=== PATIENT | female | born 1975 | race Caucasian/White ===

== ENCOUNTER 2017-07-02 06:10 | Emergency (ER) | payer SELFPAY, MEDICAID ==
[2017-07-02] MEDS ORDERED: CLINDAMYCIN INJ 900 MG in SODIUM CHLORIDE 0.9% INJ 100 ML IV (06:30)
[2017-07-02] MEDS ORDERED: SODIUM CHLORIDE 0.9% FLUSH 10 ML FLUSH IVF (06:30)
[2017-07-02] MEDS: DEXAMETHASONE SOD PHOS 4 MG/ML VIAL IV PUSH (06:45)
[2017-07-02 06:58] LABS: AUTOMATED NEUTROPHIL # 23.6 TH/MM3 (1.8-7.7); BASOPHIL # 0.8 TH/MM3 (0-0.2); BASOPHIL % 2.6 % (0.0-2.0); EOSINOPHIL # 0.3 TH/MM3 (0-0.4); EOSINOPHIL % 1.1 % (0.0-4.0); HEMATOCRIT 34.2 % (35.0-46.0); HEMOGLOBIN 10.3 GM/DL (11.6-15.3); LYMPHOCYTE # 3.3 TH/MM3 (1.0-4.8); MEAN CELL VOLUME 59.7 FL (80.0-100.0); MEAN CORPUSCULAR HGB CONC 30.1 % (32.0-36.0); MEAN PLATELET VOLUME 8.1 FL (7.0-11.0); MONO % 6.3 % (0.0-8.0); MONOCYTE # 1.9 TH/MM3 (0-0.9); PLATELET COUNT 521 TH/MM3 (150-450); RED BLOOD COUNT 5.74 MIL/MM3 (4.00-5.30); RED CELL DISTRIBUTION WIDTH 17.8 % (11.6-17.2); WHITE BLOOD COUNT 29.9 TH/MM3 (4.0-11.0)
[2017-07-02] MEDS: SODIUM CHLOR 0.9% 1000 ML INJ 1,000 ML IV ×2 (06:59→08:27)
[2017-07-02 07:00] LABS: HEMO FLAGS AUTO DIFF
[2017-07-02] MEDS: ACETAMINOPHEN 325 MG TAB PO (07:00)
[2017-07-02] MEDS: KETOROLAC TROMETHAMINE 30 MG/ML (IVP) VIAL IV PUSH (07:00)
[2017-07-02 07:02] LABS: CHLORIDE 102 MEQ/L (98-107); POTASSIUM 3.6 MEQ/L (3.5-5.1); SODIUM (NA) 134 MEQ/L (136-145)
[2017-07-02 07:04] LABS: ANION GAP 7 MEQ/L (5-15); BICARBONATE 25.1 MEQ/L (21.0-32.0); BLOOD UREA NITROGEN 4 MG/DL (7-18); CALCIUM 8.6 MG/DL (8.5-10.1); GLUCOSE,RANDOM 102 MG/DL (74-106)
[2017-07-02 07:08] LABS: CREATININE 0.74 MG/DL (0.50-1.00); GLOMERULAR FILTRATION RATE 87 ML/MIN (>89)
[2017-07-02] MEDS: CLINDAMYCIN 900 MG/NS PREMIX 50 ML IV (07:11)
[2017-07-02 07:36] LABS: BANDS 2 % (0-6); EOSINOPHILS 2 % (0-4); LYMPHOCYTES 9 % (9-44); METAMYELOCYTES 2 % (0-1); MONOCYTES 5 % (0-8); NEUTROPHIL # MANUAL DIFF 25.1 TH/MM3 (1.8-7.7); PLATELET ESTIMATE SMEAR HIGH (NORMAL); PLATELET MORPHOLOGY NORMAL (NORMAL); POLYS (SEG NEUTROPHILS) 80 % (16-70); SCAN/DIFF FINAL DIFF MANUAL; WBC DIFF SAMPLE 100
[2017-07-02] MEDS: IOHEXOL 350 MG/ML 10 ML VIAL (for RAD DIAG) IVCONTRAST (07:56)
== END 2017-07-02 09:44 | disposition home or self-care (01) ==
LOC: PHED 06:10
DX: J02.0 Streptococcal pharyngitis (principal); J03.90 Acute tonsillitis, unspecified; J32.0 Chronic maxillary sinusitis; R00.0 Tachycardia, unspecified; H92.09 Otalgia, unspecified ear; E04.9 Nontoxic goiter, unspecified; Z72.0 Tobacco use; Z79.899 Other long term (current) drug therapy
CPT/HCPCS: 70491; 80048; 84703; 85007; 85027; 87880; 96361; 96365; 96375; 99284-25

== ENCOUNTER 2017-12-18 10:31 | Observation (INO) ==
--- NOTE | 2017-12-18 14:12 | ED ---
HPI General Chief Complaint: Chest Pain Stated Complaint: chest and back pain Time Seen by Provider: 12/18/17 14:03 Source: patient Mode of arrival: ambulatory Limitations: no limitations History of Present Illness MD complaint: Reports chest pain STEMI Alert: No Onset (ago): day(s) (2) Duration: intermittent Pain location: Reports left chest Related Data Home Medications Medication Instructions Recorded Confirmed No Known Home Medications 12/18/17 12/18/17 Allergies Allergy/AdvReac Type Severity Reaction Status Date / Time No Known Allergies Allergy Verified 12/18/17 10:45 Review of Systems ROS: all other systems reviewed are negative [facility] Medical History Medical History delivery delivered (Acute) Patient denies medical problems (Acute) Social History Social History Substance History: No History of Abuse Second Hand Smoke Exposure: Yes Smoking Status: Current every day smoker Tobacco Type: Cigarettes How Often Do You Have a Drink Containing Alcohol: 2 to 4 times a month Recent Travel in [facility] within the Last 8 Weeks: No Recent Out of Country Travel within the Last 8 Weeks: No Immunization History Tetanus Immunization: Unsure Exam Const General: cooperative, healthy appearing and comfortable Orientation: alert, awake and oriented x3 HENMT Head: normal to inspection, normocephalic and atraumatic Eyes General: appearance normal, both eyes and all related structures Conjunctivae: conjunctivae normal Sclera: sclerae normal EOM: EOM intact bilaterally Neck Neck: normal visual inspection and full ROM Chest Chest: normal inspection of the chest and normal palpation of entire chest wall Resp Effort & Inspection: normal respiratory effort and able to speak in complete sentences Auscultation: clear to auscultation bilaterally Cardio Rate: regular rate Rhythm: regular rhythm Heart Sounds: S1 normal and S2 normal GI Inspection: normal to inspection Palpation: soft Back/Spine/Pelvis Cervical Spine: cervical ROM normal Thoracic/Lumbar Spine: thoraco-lumbar ROM normal Skin General: no rashes or lesions noted, turgor normal and dry skin Rashes: no rashes Neuro General: alert, awake, oriented x3, moves all extremities and CN's II-XI intact bilaterally Extrem General: normal to inspection, full ROM and no pedal edema Psych Appearance: grossly normal Mental Status: mental status grossly normal Speech and Movement: speech and movement normal Mood: congruent mood Affect: normal affect Attitude: cooperative Thought Process: normal Thought Content: normal Judgment: judgment good Course Initial Documented Vital Signs Temperature 98.5 F 12/18/17 10:41 Pulse Rate 83 12/18/17 10:41 Respiratory Rate 18 12/18/17 10:41 Blood Pressure 165/87 H 12/18/17 10:41 Pulse Oximetry 98 12/18/17 10:41 Last Documented Vital Signs Temperature 98.5 F 12/18/17 10:41 Pulse Rate 77 12/18/17 14:01 Respiratory Rate 20 12/18/17 14:01 Blood Pressure 157/80 H 12/18/17 14:01 Pulse Oximetry 100 12/18/17 14:01 Clinical Decision Support HEART Score Questions History: Slightly suspicious EKG: Normal Age: < 45 years Risk Factors: 1-2 Risk Factors Initial Troponin: Normal Limit Heart Score HEART Score: 1 Medical Decision Making MDM Narrative Medical decision making narrative: This is a 42-year-old smoker who presents with left-sided chest pain that radiates through to her back. She states that her father had coronary artery disease at a young age. He is also a smoker. Onset of chest pain was 2 days ago. It had been intermittent but became persistent last night. Initial workup is negative. The patient is agreeable to admission to the chest pain center for further evaluation. Cardiac workup is in process. She is being given aspirin. Medical Screen Exam Complete: Yes Emergency Medical Condition: Yes Differential Diagnosis Differential Diagnosis: Differential diagnosis of chest pain includes but is not limited to musculoskeletal pain, pulmonary embolism, acute coronary syndrome , pneumonia, pleurisy Lab Data Lab results reviewed: Yes I reviewed the patient's lab results. Result diagrams: 12/18/17 14:12 12/18/17 14:12 Lab Results 12/18/17 12/18/17 Range/Units 14:12 14:12 WBC 16.8 H (4.0-11.0) th/mm3 RBC 4.99 (4.00-5.30) mil/mm3 Hgb 9.6 L (11.6-15.3) gm/dL Hct 30.5 L (35.0-46.0) % MCV 61.1 L (80.0-100.0) fL MCH 19.3 L (27.0-34.0) pg MCHC 31.6 L (32.0-36.0) % RDW 18.7 H (11.6-17.2) % Plt Count 550 H (150-450) th/mm3 MPV 8.1 (7.0-11.0) fL Neut % (Auto) 72.0 H (16.0-70.0) % Lymph % (Auto) 19.3 (9.0-44.0) % [place] % (Auto) 4.5 (0.0-8.0) % Eos % (Auto) 3.0 (0.0-4.0) % Baso % (Auto) 1.2 (0.0-2.0) % Neut # (Auto) 12.1 H (1.8-7.7) th/mm3 Lymph # (Auto) 3.2 (1.0-4.8) th/mm3 [place] # (Auto) 0.7 (0.0-0.9) th/mm3 Eos # (Auto) 0.5 H (0.0-0.4) th/mm3 Baso # (Auto) 0.2 (0.0-0.2) th/mm3 WBC Differential . Differential Comment Auto diff final Sodium 139 (136-145) meq/L Potassium 4.2 (3.5-5.1) meq/L Chloride 106 (98-107) meq/L Carbon Dioxide 27.0 (21.0-32.0) meq/L Anion Gap 6 (5-15) meq/L BUN 5 L (7-18) mg/dL Creatinine 0.77 (0.50-1.00) mg/dL Estimated GFR 83 L (>89) mL/min Random Glucose 98 (74-106) mg/dL Calcium 8.1 L (8.5-10.1) mg/dL Total Bilirubin 0.3 (0.2-1.0) mg/dL AST 21 (15-37) U/L ALT 21 (10-53) U/L Alkaline Phosphatase 95 (45-117) U/L Troponin I Less than 0.02 L (0.02-0.05) ng/mL Total Protein 7.9 (6.4-8.2) g/dL Albumin 3.5 (3.4-5.0) g/dL Imaging Data Attestation: I personally reviewed and interpreted this imaging study as follows : Radiologist's impression: Chest X-Ray 12/18/17 14:09 CONCLUSION: 1. No acute cardiopulmonary disease. ECG Data EKG Prior to Arrival: No Attestation: I personally reviewed and interpreted this ECG as follows: (EKG shows a normal sinus rhythm with a rate of 76. No STT wave changes.) Discharge Plan Discharge Disposition Patient Disposition: 30 Still Patient Discharge Details Diagnosis: Chest pain Physicians Team ED Provider: Amy Garza Rxs /Orders / Referrals /Forms Prescriptions: No Action No Known Home Medications RF: 0 Discharge Instructions Patient Printed Instructions: Chest Pain (ED) Discharge Interventions Interventions: Vital Signs Last Done: 12/18/17 14:01 Status ED Status: With Doctor
--- NOTE | 2017-12-18 14:27 | XR ---
EXAM DATE: 12/18/2017 2:09 PM EDT AGE/SEX: 42 years / Female INDICATIONS: Chest pain. CLINICAL DATA: This is the patient's initial encounter. Patient reports that signs and symptoms have been present for 1 day and indicates a pain score of 7/10. MEDICAL/SURGICAL HISTORY: None. None. COMPARISON: No prior exams available for comparison. FINDINGS: A single AP view of the chest demonstrates the lungs to be symmetrically aerated without evidence of mass, infiltrate or effusion. The cardiomediastinal contours are unremarkable. Osseous structures a re intact. CONCLUSION: 1. No acute cardiopulmonary disease. Electronically signed by: Abundio Barton MD 12/18/2017 2:26 PM EDT
[2017-12-18 14:28] LABS: Baso # (Auto) 0.2 th/mm3 (0.0-0.2); Baso % (Auto) 1.2 % (0.0-2.0); Eos # (Auto) 0.5 th/mm3 (0.0-0.4); Hematocrit 30.5 % (35.0-46.0); Hemoglobin 9.6 gm/dL (11.6-15.3); Lymph # (Auto) 3.2 th/mm3 (1.0-4.8); Lymph % (Auto) 19.3 % (9.0-44.0); Mean Corpuscular HGB Conc 31.6 % (32.0-36.0); Mean Corpuscular Hemoglobin 19.3 pg (27.0-34.0); Mean Corpuscular Volume 61.1 fL (80.0-100.0); Mean Platelet Volume 8.1 fL (7.0-11.0); Mono # (Auto) 0.7 th/mm3 (0.0-0.9); Mono % (Auto) 4.5 % (0.0-8.0); Neut # (Auto) 12.1 th/mm3 (1.8-7.7); Platelet Count 550 th/mm3 (150-450); Red Blood Count 4.99 mil/mm3 (4.00-5.30); Red Cell Distribution Width 18.7 % (11.6-17.2); White Blood Count 16.8 th/mm3 (4.0-11.0)
[2017-12-18 14:45] LABS: Alanine Aminotransferase 21 U/L (10-53); Albumin 3.5 g/dL (3.4-5.0); Anion Gap 6 meq/L (5-15); Aspartate Aminotransferase 21 U/L (15-37); Blood Urea Nitrogen 5 mg/dL (7-18); Calcium 8.1 mg/dL (8.5-10.1); Chloride 106 meq/L (98-107); Glomerular Filtration Rate 83 mL/min (>89); Glucose,Random 98 mg/dL (74-106); Sodium 139 meq/L (136-145)
[2017-12-18 14:46] LABS: Potassium 4.2 meq/L (3.5-5.1)
[2017-12-18 14:48] LABS: Alkaline Phosphatase 95 U/L (45-117); Total Protein 7.9 g/dL (6.4-8.2)
[2017-12-18] MEDS ORDERED: Acetaminophen 500 MG Tablet PO PRN (15:37)
--- NOTE | 2017-12-18 16:17 | P.HPCA ---
History of Present Illness Primary Care Physician: No Primary Care Physician Chief Complaint: Chest pain History of Present Illness: 42 year old female without significant medical history presents emergency room for further evaluation of nonexertional chest pain. Onset Saturday. Took Aleve and discomfort resolved. Discomfort returned Saturday. Location substernal, midback, and left inframammary area. Characterized as squeezing. Moderate in severity. Last evening duration at least 10 hours. Currently discomfort occurring intermittent lasting seconds. Associated symptoms include nausea and "shallow breathing." No dyspnea, vomiting, or diaphoresis. No precipitating factors. No recent injury or illness. No relieving factors. Took total of 6 Advil, 5 Aleve, and 6 arthritis tablets from her uncle since Saturday. Movement, position, or deep breathing does not make pain better or worse. Endorses similar discomfort over the years, occurring every few months also relieved with Aleve, never as severe. Denies dysuria, change in bowels, increase fatigue, or fever. Last week reports food poisoning x1 day with associated diarrhea and vomiting. Symptoms since resolved. [place] extremely cold lately, which is unusual for her. Last menses 1 week ago. Lifelong smoker. Family history noncontributory for early onset cardiovascular disease. Denies situational stress. Past cardiac testing None Social history No known diabetes, hypertension, or hyperlipidemia. Lifelong non-smoker, currently smoking 1 pack / 3 days, decreased from 1-1/2 packs daily. No alcohol or recreational drug use. . 2 young children ages 8 and 2. Caregiver for uncle diagnoses with dementia. Family history Father CABG age 55. - Diagnosis (1) Atypical chest pain (2) Tobacco abuse (3) Leukocytosis, unspecified (4) Anemia Review of Systems All other systems reviewed negative except as stated in HPI Genitourinary: Reports heavy periods Comments: menses regular, generally last 7 days, reported to "always be heavy." Not established with a FORGEMAN HELPER PMF[facility] - History History Provided By: Patient - Medical History Medical History: Medical History (Last Reviewed 12/18/17 @ 16:24 by FALLON Gomez) delivery delivered Patient denies medical problems - Surgical History Surgical History: Surgical History (Last Updated 12/18/17 @ 16:24 by FALLON Gomez) History of - Family History Family History: Family History (Last Updated 12/18/17 @ 16:24 by FALLON Gomez) Father Hx of CABG Afib TIA (transient ischemic attack) - Social History I have reviewed the patient's Social History: Yes - Tobacco History Second Hand Smoke Exposure: Yes Tobacco Use In Past 30 Days: Yes Smoking Status: Current every day smoker Tobacco Type: Cigarettes Cigarettes Per Day: 7 Years Smoked: 20 - Alcohol History How Often Do You Have a Drink Containing Alcohol: 2 to 4 times a month (social drinking) - Substance Use History Substance History: No History of Abuse - Travel History History of Recent Travel: No Recent Travel in the [place] Within the Last 8 Weeks: No Recent Travel Out of the Country Within the Last 8 Weeks: No - Immunization History Tetanus Immunization: Unsure Medications and Allergies Active Medications: Active Medications Acetaminophen (Tylenol) 500 mg PO Q4H PRN PRN Reason: HEADACHE Nitroglycerin (Nitrostat Sl) 0.4 mg SL Q5M PRN PRN Reason: CHEST PAIN Ondansetron HCl (Zofran Inj) 4 mg IV.PUSH Q6H PRN PRN Reason: NAUSEA Sodium Chloride (Ns Flush) 2 ml IV.FLUSH UNSCH PRN PRN Reason: FLUSH AFTER USING IV ACCESS Sodium Chloride (Ns Flush) 2 ml IV.FLUSH BID TONYA Sodium Chloride (Ns Flush) 2 ml IV.FLUSH PRN PRN PRN Reason: FLUSH AFTER USING IV ACCESS Allergies Allergy/AdvReac Type Severity Reaction Status Date / Time No Known Allergies Allergy Verified 12/18/17 10:45 Home Medications Medication Instructions Recorded Confirmed Type No Known Home Medications 12/18/17 12/18/17 History Exam Vital signs: Vital Signs 12/18/17 10:41 12/18/17 14:01 Temperature 98.5 F Pulse Rate 83 77 Respiratory Rate 18 20 Blood Pressure 165/87 H 157/80 H Pulse Oximetry 98 100 Intake & Output 12/17/17 12/18/17 12/18/17 18:59 06:59 18:59 Weight 105.233 kg Narrative: GENERAL: Alert WN, WD, NAD, very pleasant, obese female HEAD: NC, AT EYES: Sclera clear, conjunctiva without injection, pupils equal and round ENT: Mucous membranes pink and moist NECK: Supple, no masses, trachea midline CV: RRR, without murmur, rub, gallop, no JVD, S1-S2 no S3-S4. Chest wall nontender to palpation. RESP: Clear lungs throughout bilateral, no crackles, wheeze, rhonchi, symmetrical chest rise, nonlabored, able to speak in full sentences ABD: Soft, NT, ND, no masses, positive bowel tones BACK: No scoliosis, no CVAT EXT: Pulses +2x4, no dependent edema MS: Normal tone x4 extremities, nontender, no obvious deformities, full range of motion NEURO: CN II through CN XII grossly intact, motor strength 5/5 PSYCH: A+O x3, pleasant affect, appropriate speech, mood, insight and judgment SKIN: Normal turgor, normal texture, no lesions, no rashes, brisk cap refill, even hair distribution, multiple patchy, plaques bilateral knees and chins Results 12/18/17 14:12 12/18/17 14:12 Cardiac Enzymes 12/18/17 Range/Units 14:12 AST 21 (15-37) U/L Troponin I Less than 0.02 L (0.02-0.05) ng/mL CBC 12/18/17 Range/Units 14:12 WBC 16.8 H (4.0-11.0) th/mm3 RBC 4.99 (4.00-5.30) mil/mm3 Hgb 9.6 L (11.6-15.3) gm/dL Hct 30.5 L (35.0-46.0) % Plt Count 550 H (150-450) th/mm3 Neut # (Auto) 12.1 H (1.8-7.7) th/mm3 Lymph # (Auto) 3.2 (1.0-4.8) th/mm3 [place] # (Auto) 0.7 (0.0-0.9) th/mm3 Eos # (Auto) 0.5 H (0.0-0.4) th/mm3 Baso # (Auto) 0.2 (0.0-0.2) th/mm3 Comprehensive Metabolic Panel 12/18/17 Range/Units 14:12 Sodium 139 (136-145) meq/L Potassium 4.2 (3.5-5.1) meq/L Chloride 106 (98-107) meq/L Carbon Dioxide 27.0 (21.0-32.0) meq/L BUN 5 L (7-18) mg/dL Creatinine 0.77 (0.50-1.00) mg/dL Calcium 8.1 L (8.5-10.1) mg/dL AST 21 (15-37) U/L ALT 21 (10-53) U/L Alkaline Phosphatase 95 (45-117) U/L Total Protein 7.9 (6.4-8.2) g/dL Albumin 3.5 (3.4-5.0) g/dL Intake and Output 12/18/17 12/18/17 12/18/17 06:59 14:59 22:59 Other: Weight 105.233 kg Patient Weight 12/19/17 06:59 Weight 105.233 kg - Imaging and Cardiology Imaging: Impressions Chest X-Ray 12/18/17 14:09 CONCLUSION: 1. No acute cardiopulmonary disease. EKG interpretations - EKG EKG results cardiology: sinus rhythm, normal axis, normal QRS, normal ST/T Caprini VTE Risk Assessment Caprini VTE Risk Assessment: No/Low Risk (score <= 1) Caprini Risk Assessment Model: Point Value = 1 Point Value = 2 Point Value = 3 Point Value = 5 Age 41-60 Minor surgery BMI > 25 kg/m2 Swollen legs Varicose veins or History of unexplained or recurrent spontaneous Oral contraceptives or hormone replacement Sepsis (< 1 month) Serious lung disease, including pneumonia (< 1 month) Abnormal pulmonary function Acute myocardial infarction Congestive heart failure (< 1 month) History of inflammatory bowel disease Medical patient at bed rest Age 61-74 Arthroscopic surgery Major open surgery (> 45 min) Laparoscopic surgery (> 45 min) Malignancy Confined to bed (> 72 hours) Immobilizing plaster cast Central venous access Age >= 75 History of VTE Family history of VTE Factor V Leiden Prothrombin [id number] Lupus anticoagulant Anticardiolipin antibodies Elevated serum homocysteine Heparin-induced thrombocytopenia Other congenital or acquired thrombophilia Stroke (< 1 month) Elective arthroplasty Hip, pelvis, or leg fracture Acute spinal cord injury (< 1 month) Prophylaxis Regimen: Total Risk Factor Score Risk Level Prophylaxis Regimen 0-1 Low Early ambulation 2 Moderate Order ONE of the following: *Sequential Compression Device (SCD) *Heparin 5000 units SQ BID 3-4 Higher Order ONE of the following medications: *Heparin 5000 units SQ TID *Enoxaparin/Lovenox 40 mg SQ daily (WT < 150 kg, CrCl > 30 mL/min) *Enoxaparin/Lovenox 30 mg SQ daily (WT < 150 kg, CrCl > 10-29 mL/min) *Enoxaparin/Lovenox 30 mg SQ BID (WT < 150 kg, CrCl > 30 mL/min) AND/OR *Sequential Compression Device (SCD) 5 or more Highest Order ONE of the following medications: *Heparin 5000 units SQ TID (Preferred with Epidurals) *Enoxaparin/Lovenox 40 mg SQ daily (WT < 150 kg, CrCl > 30 mL/min) *Enoxaparin/Lovenox 30 mg SQ daily (WT < 150 kg, CrCl > 10-29 mL/min) *Enoxaparin/Lovenox 30 mg SQ BID (WT < 150 kg, CrCl > 30 mL/min) AND *Sequential Compression Device (SCD) Assessment and Plan - Assessment (1) Atypical chest pain Code(s): R07.89 - Other chest pain Status: Acute Plan: Admitted to chest pain center. Continue ACS protocol including 3 sets of EKGs and cardiac enzymes. Monitor on telemetry overnight. Will be seen and evaluated by Dr. Lopez Blount in a.m. If ruled out likely will complete exercise cardiac testing. Toradol 30 mg IV x1 dose now. Discussed plan of care with patient agreeable to plan of care and verbalized understanding. (2) Tobacco abuse Code(s): Z72.0 - Tobacco use Status: Chronic Plan: Strongly encouraged and stressed importance of tobacco cessation. Instructed to quit smoking. Discussed tobacco Free [place] program available. (3) Leukocytosis, unspecified Code(s): D72.829 - Elevated white blood cell count, unspecified Status: Acute Plan: Trend, repeat CBC in morning. Obtain UA. No acute findings to suggest infection. (4) Anemia Code(s): D64.9 - Anemia, unspecified Status: Acute Plan: Discussed findings with patient. Obtain iron and TIBC. Encouraged follow up with primary care provider and FORGEMAN HELPER for reported heavy menses as well as well visits. (3) Leukocytosis, unspecified Qualifiers: Leukocytosis type: unspecified Qualified Code(s): D72.829 - Elevated white blood cell count, unspecified (4) Anemia Qualifiers: Anemia type: unspecified type Qualified Code(s): D64.9 - Anemia, unspecified
[2017-12-18 16:33] LABS: Amorphous Sediment,Urine Rare /hpf; Bacteria,Urine Occasional /hpf; Bilirubin,Urine Negative (Negative); Clarity,Urine Hazy (Clear); Color,Urine Yellow (Yellw/Straw); Glucose,Urine (UA) Negative (Negative); Leukocyte Esterase,Urine Large (Negative); Mucus,Urine Few /lpf (Occasional); Nitrite,Urine Negative (Negative); Squamous Epithelial Cell,Urine 1 /hpf (0-5)
[2017-12-18] MEDS ORDERED: Ketorolac Inj 30 MG/ML (IVP) Vial IV.PUSH ONE (17:00)
[2017-12-19 04:54] LABS: Hematocrit 31.6 % (35.0-46.0); Hemoglobin 9.1 gm/dL (11.6-15.3); Mean Corpuscular Hemoglobin 17.7 pg (27.0-34.0); Mean Corpuscular Volume 61.5 fL (80.0-100.0); Mean Platelet Volume 7.9 fL (7.0-11.0); Platelet Count 495 th/mm3 (150-450); Red Blood Count 5.13 mil/mm3 (4.00-5.30); Red Cell Distribution Width 18.6 % (11.6-17.2); White Blood Count 15.6 th/mm3 (4.0-11.0)
[2017-12-19 05:00] LABS: Mean Corpuscular HGB Conc 28.9 % (32.0-36.0)
[2017-12-19 05:16] LABS: Chol/HDL Ratio 4.51 Ratio; HDL Cholesterol 34.3 mg/dL (40.0-60.0)
[2017-12-19 07:39] VITALS: BP 146/76; RESP 16; TEMP 98.4
--- NOTE | 2017-12-19 09:47 | P.PNCA ---
Subjective Interval history: No complaints overnight. Medications and Allergies Active Medications: Active Medications Acetaminophen (Tylenol) 500 mg PO Q4H PRN PRN Reason: HEADACHE Nitroglycerin (Nitrostat Sl) 0.4 mg SL Q5M PRN PRN Reason: CHEST PAIN Ondansetron HCl (Zofran Inj) 4 mg IV.PUSH Q6H PRN PRN Reason: NAUSEA Sodium Chloride (Ns Flush) 2 ml IV.FLUSH UNSCH PRN PRN Reason: FLUSH AFTER USING IV ACCESS Sodium Chloride (Ns Flush) 2 ml IV.FLUSH BID TONYA Last Admin: 12/18/17 22:16 Dose: 2 ml Sodium Chloride (Ns Flush) 2 ml IV.FLUSH PRN PRN PRN Reason: FLUSH AFTER USING IV ACCESS Allergies Allergy/AdvReac Type Severity Reaction Status Date / Time No Known Allergies Allergy Verified 12/18/17 10:45 Home Medications Medication Instructions Recorded Confirmed Type No Known Home Medications 12/18/17 12/18/17 History Physical Exam Vital signs: Vital Signs 12/18/17 10:41 12/18/17 14:01 12/18/17 16:20 Temperature 98.5 F 98.4 F Pulse Rate 83 77 78 Respiratory Rate 18 20 18 Blood Pressure 165/87 H 157/80 H 103/65 Pulse Oximetry 98 100 97 12/18/17 19:58 12/18/17 20:00 12/18/17 23:47 Temperature 98.5 F 97.9 F Pulse Rate 86 75 82 Respiratory Rate 20 18 Blood Pressure 123/61 129/61 Pulse Oximetry 99 97 97 12/19/17 04:00 12/19/17 07:36 Temperature 97.9 F 98.4 F Pulse Rate 70 75 Respiratory Rate 18 16 Blood Pressure 119/59 L 146/76 H Pulse Oximetry 98 97 Intake & Output 12/18/17 12/19/17 12/19/17 18:59 06:59 18:59 Intake Total 220 / 220 Balance 220 / 220 Weight 105.233 kg 105.233 kg Intake: Oral 220 / 220 Other: Date of Last Bowel Movement 12/17/17 12/17/17 - Constitutional no acute distress - Routine HEENT Exam Head: Present: normocephalic, atraumatic - Routine Respiratory Exam Present: CTA bilaterally. Absent: rhonchi, wheezes, crackles - Routine Cardiovascular Exam Present: RRR, S1, S2. Absent: murmur, gallop, rubs - Routine Abdominal Exam Present: soft, normoactive bowel sounds. Absent: tenderness, distended - Routine Extremities Exam Present: full ROM, pulses intact, normal capillary refill. Absent: edema - Routine Skin Exam Present: intact - Routine Neurological Exam Present: alert, oriented X3 - Routine Psychiatric Exam Present: normal affect, normal thought process Results 12/19/17 04:27 12/18/17 14:12 Cardiac Enzymes 12/18/17 12/18/17 12/18/17 Range/Units 14:12 17:15 20:47 AST 21 (15-37) U/L Troponin I Less than 0.02 L Less than 0.02 L Less than 0.02 L (0.02-0.05) ng/mL Lipids 12/19/17 Range/Units 04:27 Triglycerides 103 (42-150) mg/dL Cholesterol 155 (120-200) mg/dL HDL Cholesterol 34.3 L (40.0-60.0) mg/dL Cholesterol/HDL Ratio 4.51 Ratio CBC 12/18/17 12/19/17 Range/Units 14:12 04:27 WBC 16.8 H 15.6 H (4.0-11.0) th/mm3 RBC 4.99 5.13 (4.00-5.30) mil/mm3 Hgb 9.6 L 9.1 L (11.6-15.3) gm/dL Hct 30.5 L 31.6 L (35.0-46.0) % Plt Count 550 H 495 H (150-450) th/mm3 Neut # (Auto) 12.1 H (1.8-7.7) th/mm3 Lymph # (Auto) 3.2 (1.0-4.8) th/mm3 [place] # (Auto) 0.7 (0.0-0.9) th/mm3 Eos # (Auto) 0.5 H (0.0-0.4) th/mm3 Baso # (Auto) 0.2 (0.0-0.2) th/mm3 Comprehensive Metabolic Panel 12/18/17 Range/Units 14:12 Sodium 139 (136-145) meq/L Potassium 4.2 (3.5-5.1) meq/L Chloride 106 (98-107) meq/L Carbon Dioxide 27.0 (21.0-32.0) meq/L BUN 5 L (7-18) mg/dL Creatinine 0.77 (0.50-1.00) mg/dL Calcium 8.1 L (8.5-10.1) mg/dL AST 21 (15-37) U/L ALT 21 (10-53) U/L Alkaline Phosphatase 95 (45-117) U/L Total Protein 7.9 (6.4-8.2) g/dL Albumin 3.5 (3.4-5.0) g/dL Intake and Output 12/18/17 12/19/17 12/19/17 22:59 06:59 14:59 Intake Total 220 / 220 Balance 220 / 220 Intake: Oral 220 / 220 Other: Date of Last Bowel Movement 12/17/17 Weight 105.233 kg - Imaging and Cardiology Imaging: Impressions Chest X-Ray 12/18/17 14:09 CONCLUSION: 1. No acute cardiopulmonary disease. Assessment and Plan - Assessment (1) Atypical chest pain Code(s): R07.89 - Other chest pain Status: Acute Plan: Admitted to chest pain center. Monitored overnight. ACS ruled out with 3 sets of EKGs and cardiac enzymes. Seen and evaluated by Dr. Lopez Blount. Proceed with exercise cardiac stress testing. If unremarkable, plans are to discharge home with follow-up with primary care provider. Names of local clinics will be provided upon discharge. Lipid panel reviewed. Discussed findings with patient. LDL 100, HDL 34, encouraged weight lost, increasing daily activity, smoking cession, and dietary changes. (2) Tobacco abuse Code(s): Z72.0 - Tobacco use Status: Chronic Plan: Strongly encouraged and stressed importance of tobacco cessation. Instructed to quit smoking. Discussed tobacco Free [place] program available. (3) Leukocytosis, unspecified Code(s): D72.829 - Elevated white blood cell count, unspecified Status: Acute Plan: Trend, repeat CBC in morning reviewed. Obtain UA. No acute findings to suggest infection. (4) Anemia Code(s): D64.9 - Anemia, unspecified Status: Acute Plan: Discussed findings with patient. Strongly encouraged follow up with primary care provider and GRINDING OPERATOR for reported heavy menses as well as well visits. (3) Leukocytosis, unspecified Qualifiers: Leukocytosis type: unspecified Qualified Code(s): D72.829 - Elevated white blood cell count, unspecified (4) Anemia Qualifiers: Anemia type: unspecified type Qualified Code(s): D64.9 - Anemia, unspecified
[2017-12-19 11:03] VITALS: PULSE 73; O2SAT 99
--- NOTE | 2017-12-20 08:31 | ECG ---
Date Performed: 12/18/2017 Time Performed: 20:38:51 PTAGE: 42 years EKG: POOR QUALITY TRACING NORMAL Sinus rhythm PREVIOUS TRACING : 12/18/2017 17.22 DOCTOR: Lopez Blount Interpretating Date/Time 12/24/2017 13:25:21
--- NOTE | 2017-12-20 08:31 | ECG ---
Date Performed: 12/19/2017 Time Performed: 03:00:58 PTAGE: 42 years EKG: Sinus rhythm NORMAL ECG PREVIOUS TRACING : 12/18/2017 20.38 Since previous tracing, no significant change noted DOCTOR: Lopez Blount Interpretating Date/Time 12/20/2017 08:30:14
--- NOTE | 2017-12-20 08:32 | ECG ---
Date Performed: 12/18/2017 Time Performed: 17:22:06 PTAGE: 42 years EKG: Sinus rhythm NORMAL ECG INTERPRETATION BASED ON A DEFAULT AGE OF 42 YEARS PREVIOUS TRACING : 12/18/2017 11.02 Since previous tracing, no significant change noted DOCTOR: Lopez Blount Interpretating Date/Time 12/20/2017 08:31:54
--- NOTE | 2017-12-20 08:33 | ECG ---
Date Performed: 12/18/2017 Time Performed: 11:02:20 PTAGE: 42 years EKG: Sinus rhythm NORMAL ECG INTERPRETATION BASED ON A DEFAULT AGE OF 42 YEARS NO PREVIOUS TRACING DOCTOR: Lopez Blount Interpretating Date/Time 12/20/2017 08:32:15
--- NOTE | 2017-12-20 08:33 | TR ---
Date Performed: 12/19/2017 Time Performed: 10:21:58 DOCTOR: Lopez Blount DRUG LIST: CLINICAL HISTORY: CHEST PAIN REASON FOR TEST: REASON FOR ENDING: OBSERVATION: CONCLUSION: Wally protocol completed. Stopped sec to exceeding target heart rate and leg fatigue . Maximum HT=786 Max HR Achieved=86.0% Maximum SO=735/70 Total Exercise Time=6:22. No reprod chest d iscomfort. No ectopy. No st t segment changes. Fair exercise tolerance. Normal bp response. Recovery quick and unremarkable. COMMENTS: Patient exercised using the Wally protocol. No electrocardiographic changes were seen to suggest ischemia. Hemodynamic response to exercise was normal. No significant arrhythmia was prese nt.
== END 2017-12-19 11:23 | disposition home or self-care (01) ==
LOC: NEDA 10:31 → NEPE 10:31 → NEPFCDU 16:07 → NEDH 12-19 10:01
PROVIDERS: ADMIT Internal Medicine Cardiovascular Disease; ATTEND Internal Medicine Cardiovascular Disease